=== PATIENT | female | born 1935 | race Caucasian/White ===

== ENCOUNTER 2016-10-20 16:41 | Inpatient (IN) ==
[2016-10-20] MEDS ORDERED: hydrALAZINE 20 MG/1 ML VIAL IM STA (17:34)
--- NOTE | 2016-10-20 17:52 | CT Report ---
CT lumbar spine wo con Indication: fall on buttocks and pain Comparison: None. Technique: Routine CT of the lumbar spine was performed without the administration of intravenous contrast. Axial images as well as coronal and sagittal MPR images of the lumbar spine was submitted for interpretation. The total DLP is 553 mGy*cm. Findings: Lumbar vertebral bodies demonstrate normal alignment. Multilevel degenerative changes are noted with prominent facet arthropathy at L4-5 through L5-S1. Generalized decreased trabeculation is noted. There is approximately 50% height loss at the L1 level, which appears chronic. There is no prior for comparison. There is no evidence of significant central stenosis. Mild disc space loss is noted at L4-5 and L5-S1 with vacuum disc phenomena changes. The prevertebral soft tissues as well as posterior paraspinous musculature and imaged intra-abdominal contents demonstrate no evidence of acute pathology. There is cortical irregularity at the right aspect of the sacrum at the S3-S4 level (best seen on sagittal image 35), which is suspicious for minimally displaced fracture although motion artifact would be a less likely consideration. No other additional displaced acute fractures are identified. Impression: 1. Cortical irregularity at the S3-S4 level may represent motion artifact versus subtle nondisplaced acute fracture. Correlate with focal tenderness at this level. 2. Otherwise, no acute fracture identified within the lumbar spine. Probable remote compression fracture at L1 with 50% height loss. There is no prior for comparison. Generalized decreased trabeculation throughout the visualized osseous structures. 10/20/2016 5:43 PM PROCEDURE INTERPRETED AT [facility] DEPARTMENT OF RADIOLOGY Final Report Signed by: Lance Pradhan
[2016-10-20] MEDS ORDERED: hydrALAZINE 20 MG/1 ML VIAL ONE (17:58)
--- NOTE | 2016-10-20 18:23 | Emergency Department Note ---
I, Val Rodriguez, am scribing for, and in the presence of, Darrian Turcios 17:10. I, Darrian Turcios, personally performed the services described in this documentation, ascribed by Val Rodriguez in my presence, and it is both accurate and complete 823 . Arrival - Arrival Chief Complaint: Fall Stated Complaint: FALL ED Nursing Triage Note: REPORTS TRYING TO GET IN TRUCK TRYING TO STEP OVER A MUD PUDDLE AND SLIPPED AND FELL WITHOUT LOC. PT C/O LOWER BACK PAIN. NO INJURIES NOTED Mode of Arrival: Stretcher Limitations: No Limitations Source: Patient Time Seen by Provider: 10/20/16 16:59 - History of Present Illness HPI Narrative: Pt is a 81 y/o female that was brought to the ED via EMS with c/o left leg and buttocks pain s/p a fall that happened earlier today. Pt reports she was getting into her vehicle when she tried to step over a mud pudding and slipped landing on her buttocks. Pt reports she as unable to get up when she fell. Pt states this is her third fall. She reports her back is not currently hurting but "it's like the last time, it's going to start hurting." Pt states she has an appointment tomorrow here concerning her back. Pt denies any dizziness or LOC. Pt denies hitting her leg during the fall. No other complaints/pain at this time. Onset (ago): hour(s) Consistency: constant Severity: mild Severity scale (1-10): 2 Quality: sharp Date of Last Menstrual Period: MENOPAUSE Allergies/Adverse Reactions: Allergies Allergy/AdvReac Type Severity Reaction Status Date / Time Penicillins Allergy Unknown RASH Verified 10/20/16 16:50 Home Medications: Home Medications Medication Instructions Recorded Confirmed Type Bisoprolol Fumarate 5 mg PO DAILY 10/20/16 10/20/16 History Lisinopril [Prinivil] 20 mg PO DAILY 10/20/16 10/20/16 History Review of System - Review of System 12 point system: reviewed and no additional remarkable complaints except as stated - Review of System Constitutional: Absent: fever Respiratory: Absent: cough Cardiovascular: Absent: chest pain Gastrointestinal: Absent: abdominal pain Musculoskeletal: Present: leg pain (left leg pain s/p fall), other (buttock pain s/p fall). Absent: arm pain, neck pain Neurological: Absent: headache Psychiatric: Absent: anxiety Medical,Surgical,& Family Hx - Medical History Cardio: History of: Hypertension - Social History Smoking Status: Never smoker Frequency of Alcohol Use: None Type of Drug Use: None Exam Vital Signs: Vital Signs Temperature 99.1 F 10/20/16 16:45 Pulse Rate 89 10/20/16 16:45 Respiratory Rate 16 10/20/16 16:45 Blood Pressure 212/118 10/20/16 16:45 O2 Sat by Pulse Oximetry 97 10/20/16 16:41 - General General appearance: alert, in no apparent distress - Head Head exam: Present: atraumatic, normocephalic - Eye Eye exam: Present: PERRL, EOMI - ENT ENT exam: Present: mucous membranes moist. Absent: mucous membranes dry - Neck Neck exam: Present: full ROM. Absent: tenderness - Chest Chest inspection: Present: symmetric chest wall rise. Absent: tenderness - Respiratory Respiratory exam: Present: normal lung sounds bilaterally. Absent: respiratory distress - Cardiovascular Cardiovascular exam: Present: regular rate, normal rhythm, normal heart sounds - Abdominal Exam Abdominal exam: Present: soft. Absent: tenderness - Extremities Exam Extremities exam: Present: full ROM. Absent: tenderness - Back Exam Back exam: Present: full ROM. Absent: tenderness - Neurological Exam Neurological exam: Present: alert, oriented X3, CN II-XII intact. Absent: motor sensory deficit - Psychiatric Psychiatric exam: Present: normal affect, normal mood - Skin Skin exam: Present: warm, dry - Other Other exam information: with sacral tenderness Results - Diagnostic Findings Procedure: CT: report reviewed by me (Lumbar Spine: 1. Cortical irregularity at the S3-S4 level may represent motion artifact versus subtle nondisplaced acute fracture. Correlate with focal tenderness at this level. 2. Otherwise, no acute fracture identified within the lumbar spine.) Disposition Clinical Impression: Hypertension, Contusion Case discussed with: patient Disposition: Still a Patient Condition: Stable Instructions: Fall Prevention for Older Adults (ED), Contusion in Adults (ED) Additional Instructions: due to handicap sp fall and questionable fracture in discussion with radiology. discussion with hospitalist Dr. Matute accepting for hospital observation. Time of Disposition: 18:21
--- NOTE | 2016-10-20 18:45 | Hospitalist History & Physical ---
Assessment and Plan - Time spent with patient Time spent with patient: Greater than 30 minutes (1) Status post fall Status: Acute Assessment and plan: Patient is status post fall has questionable sacral fracture. She will be placed in observation overnight with neuro checks and pain control and was evaluated in the a.m. Current Visit: Yes (2) Hypertension Status: Chronic Assessment and plan: Patient has chronic essential hypertension. Blood pressures currently elevated which is likely secondary to pain which we will attempt to control. We will continue her routine home medications and provide as needed hydralazine intravenously. Current Visit: Yes Qualifiers: Hypertension type: essential hypertension Qualified Code(s): I10 - Essential (primary) hypertension History of Present Illness Chief complaint: Back pain after fall History of present illness: Ms. Joya is a 81 year old female who states that she was opening her car door and fell on her back this afternoon. She has had continued pain and presented to the emergency room where she was evaluated and there is questionable fracture noted. Because she lives alone and has had an advanced age it was felt that she should be placed on observation overnight for pain control and reassess in the a.m. for possible discharge home. She denies any headache, upper respiratory tract symptoms, chest pain, shortness breath, abdominal pain, nausea, vomiting, diarrhea, constipation, melena, hematochezia, hematemesis, dysuria, hematuria, urinary frequency, incontinence, urgency, focal motor weakness or paresthesias, fevers, chills. Her primary care provider is Dr. Radha Chung. Home Medications Medication Instructions Recorded Confirmed Type Bisoprolol Fumarate 5 mg PO DAILY 10/20/16 10/20/16 History Lisinopril [Prinivil] 20 mg PO DAILY 10/20/16 10/20/16 History Allergies Allergy/AdvReac Type Severity Reaction Status Date / Time Penicillins Allergy Unknown RASH Verified 10/20/16 16:50 Medical,Surgical,& Family Hx - Medical History Cardio: History of: Hypertension - Surgical History Surgical History: noncontributory - Family History Family History: noncontributory - Social History Smoking Status: Current every day smoker Have you smoked in the last 12 months: Yes Time spent discussing smoking cessation with patient: 3 to 10 minutes Frequency of Alcohol Use: None Type of Drug Use: None Lives With:: Alone Functional capacity: independent ambulation 12 point system: reviewed and no additional remarkable complaints except as stated Exam - Constitutional Vitals: Period Temp Pulse Resp BP Sys/Colón Pulse Ox Last 24 Hr 99.1 F-99.1 F 89-89 16-16 212-212/118-118 97 General appearance: mild distress - Head Head exam: Present: normocephalic, atraumatic - Eye Eye exam: Present: EOMI Pupils: Present: DEBRA - Neck Neck exam: Absent: lymphadenopathy, meningismus, tenderness, thyromegaly - Respiratory Respiratory exam: Present: clear to auscultation bilaterally. Absent: rales, rhonchi, wheezes - Cardiovascular Cardiovascular exam: Present: regular rate and rhythm. Absent: gallop, JVD, rubs, tachycardia - GI/Abdominal GI/Abdominal exam: Present: normal bowel sounds, soft. Absent: distended, mass , tenderness, rebound - Extremities Exam Extremities exam: Absent: calf tenderness, edema - Back Exam Back exam: Present: vertebral tenderness (Mild tenderness in the lower lumbar and sacral region to direct palpation), other (Kyphosis). Absent: positive straight leg raise - Neurological Exam Neurological exam: Present: alert, oriented X3, CN II-XII intact. Absent: motor sensory deficit - Psychiatric Psychiatric exam: Present: normal affect, normal mood. Absent: agitated, anxious - Skin Skin exam: Present: warm, dry. Absent: erythema, rash Results - Diagnostic Findings Procedure: CT: report reviewed by me
[2016-10-20 19:01] LABS: Basophils % 0.3 % (0.0-0.8); Eosinophils % 0.1 % (0.00-10.9); Hematocrit 40.2 VOL% (35.7-47.0); Hemoglobin 12.7 GM/DL (12.0-16.0); Immature Granulocytes % 0.5 %; Immature Granulocytes Absolute 0.05 #; Lymphocytes # 1.7 10*3/uL (1.4-4.0); Lymphocytes % 15.7 % (21.3-54.2); Mean Corpuscular HGB Conc 31.6 GM/DL (32-36); Mean Corpuscular Hemoglobin 25 PG (27-34); Mean Corpuscular Volume 79.8 FL (87-102); Monocytes # 0.7 10*3/uL (0.11-0.8); Monocytes % 6.6 % (1.7-12.7); Neutrophils # 8.3 10*3/uL (1.4-7.4); Neutrophils % 76.8 % (38.7-73.9); Platelet Count 250 T/CUMM (130-400); Red Blood Count 5.04 MC/CUMM (3.8-5.5); Red Cell Distribution Width 14.9 % (9.3-17.3); White Blood Count 10.8 T/CUMM (4-12)
[2016-10-20 19:17] LABS: Calcium 9.7 MG/DL (8.5-10.1); Osmolality,Calculated 288.1 MOS/KG (273-304); Potassium 3.6 MMOL/L (3.5-5.1)
[2016-10-20 19:40] LABS: Apearance,Urine CLEAR (Clear); Bacteria,Urine Occasional /HPF (Few); Bilirubin,Urine Negative (Negative); Blood, Urine Small mg/dL (Negative); Glucose,Urine (UA) Negative (Negative); Ketones,Urine 80 mg/dL (Negative); Nitrite,Urine Negative (Negative); Protein,Urine 100 MG/DL; RBC,Urine 2 /HPF (0-4); Squamous Epithelial Cell,Urine Occasional /HPF (0-10); Transitional Epi Cells,Urine Occasional /HPF (<1); Urine Color Yellow (Yellow); WBC,Urine 1 /HPF (0-6)
[2016-10-20] MEDS ORDERED: hydrALAZINE 20 MG/1 ML VIAL IV PRN (19:56)
[2016-10-20] MEDS ORDERED: MORPHINE 2 MG/1 ML SYRINGE IV PRN (19:56)
[2016-10-21] MEDS: BISOPROLOL 5 MG TABLET PO SCH (08:53)
[2016-10-21] MEDS: LISINOPRIL 20 MG TABLET PO SCH (08:53)
--- NOTE | 2016-10-21 09:27 | Hospitalist Progress Note ---
Assessment and Plan - Time spent with patient Time spent with patient: Less than 30 minutes (due to assessment, plan and doc) (1) possible sacral fracture Status: Acute Assessment and plan: consult Dr. Jose Davila with ortho for eval Current Visit: Yes (2) Status post fall Status: Acute Current Visit: Yes (3) Hypertension Status: Chronic Assessment and plan: Bp well controlled at this time Current Visit: Yes Qualifiers: Hypertension type: essential hypertension Qualified Code(s): I10 - Essential (primary) hypertension Hospitalist: Subjective Interval history: Ms. Joya was seen today lying in bed. She was admitted yesterday s/p fall with a questionable nondisplaced lumbar spine fracture. She states that her pain is somewhat better, but mentions that it hurts when she moves. Her vitals are stable. I have discussed with Dr. Harlan Tellez and we will consult Ortho to ensure no further treatment needed for her possible fx. Exam - Constitutional Vitals: Period Temp Pulse Resp BP Sys/Colón Pulse Ox Last 24 Hr 97.3 F-98.2 F 86-93 16-89 139-162/60-84 16-95 General appearance: no acute distress, cachectic - Head Head exam: Present: normal inspection, normocephalic - Eye Eye exam: Present: EOMI. Absent: scleral icterus Pupils: Present: DEBRA, normal accommodation - ENT ENT exam: Present: normal exam, normal oropharynx - Neck Neck exam: Present: normal inspection. Absent: lymphadenopathy - Respiratory Respiratory exam: Present: clear to auscultation bilaterally. Absent: accessory muscle use - Cardiovascular Cardiovascular exam: Present: regular rate and rhythm - GI/Abdominal GI/Abdominal exam: Present: normal bowel sounds, soft. Absent: tenderness - Extremities Exam Extremities exam: Present: normal inspection. Absent: edema - Back Exam Back exam: Present: normal inspection. Absent: muscle spasm - Neurological Exam Neurological exam: Present: alert, oriented X3 - Psychiatric Psychiatric exam: Present: normal affect, normal mood - Skin Skin exam: Present: normal color, warm, dry, intact Results - Labs CBC & BMP: 10/20/16 18:53 10/20/16 18:53 Lab Results: I have reviewed the past 24 hour labs Quality Measures - Stroke Symptom Onset Unknown: No Specialty Discharge - Follow Up or Referrals
[2016-10-21] MEDS ORDERED: SKIN HEALING OINT (AQUAPHOR) 50 GM TUBE TOP PRN (10:28)
--- NOTE | 2016-10-21 18:11 | Orthopedic Consult Note ---
History of Present Illness Chief complaint: compression fracture lumbar/ possible sacral fracture History of present illness: Ms. Joya is a 81 year old female See dictated reports Home Medications Medication Instructions Recorded Confirmed Type Bisoprolol Fumarate 5 mg PO DAILY 10/20/16 10/20/16 History Lisinopril [Prinivil] 20 mg PO DAILY 10/20/16 10/20/16 History Allergies Allergy/AdvReac Type Severity Reaction Status Date / Time Penicillins Allergy Unknown RASH Verified 10/20/16 16:50 Medical,Surgical,& Family Hx - Medical History Cardio: History of: Hypertension Psychological: History of: Anxiety Disorders Neurology: History of: Dementia (appears pleasantly confused) HEENT: History of: Dental Problems (dentures) Musculoskeletal: History of: Osteoporosis - Social History Smoking Status: Current every day smoker Frequency of Alcohol Use: None Type of Drug Use: None Exam - Constitutional Vitals: Period Temp Pulse Resp BP Sys/Colón Pulse Ox Last 24 Hr 97.3 F-98.2 F 83-93 16-89 135-162/60-84 16-95 Results - Labs CBC & BMP: 10/20/16 18:53 10/20/16 18:53 Specialty Discharge - Follow Up or Referrals
--- NOTE | 2016-10-21 20:32 | XRay Report ---
XR lumbar spine AP/LAT Clinical Information: L1 compression fracture Comparison: CT lumbar spine 10/20/2016 prior PA and lateral chest radiographs 07/08/2011 Findings: Osteopenia with multiple compression deformities in the lower thoracic and upper lumbar spine. There is no recent prior for comparison. At least 50% height loss is noted at T9, T12 and L1. There is approximately 30% height loss noted at T10-T11. The T9 compression fracture is chronic. The other T12 and L1 compression fractures are age indeterminate. Correlation with MRI imaging of the thoracic and/or lumbar spine may be helpful if there is continued clinical concern for acute compression fracture. Impression: As above. PROCEDURE INTERPRETED AT [facility] DEPARTMENT OF RADIOLOGY Final Report Signed by: Lance Pradhan
--- NOTE | 2016-10-22 00:56 | Consultation ---
HISTORY: An 81-year-old white female admitted for multiple complaints following a fall. She was ad mitted to the Hospitalist Service. She also sees Dr. Tellez. She has a history of low back problems . She states she has been seeing Dr. Chung. It is difficult from her history to get the diagno sis of a fracture. She has not been in any type of brace or orthotics. Upon presentation, she was diagnosed as having a L1 compression fracture as well as a possible fracture to the right sacrum bas ed on the CT scan. She is complaining primarily of mid to low lumbar back pain and no radiation of pain into either lower extremity. PHYSICAL EXAMINATION Thin white female. She tolerates gentle range of motion about both lower extremities without any ob vious discomfort. Motor exam is intact distally. She has no pain about the pelvis, only pain in th e upper to mid lumbar region. RADIOGRAPHS: A CT scan is available, it does not have any sagittal views, it is only axial and juliana nal. I do not see an obvious sacral fracture or significant degenerative changes involving her lumb ar spine. IMPRESSION: SUSPECTED L1 COMPRESSION FRACTURE. PLAN: I have discussed with her the diagnosis. I will order some plain film x-rays of her lumbar s pine, so we can get a better idea of what the degree of compression and also some idea about the acu teness of the injury. We will obtain those tonight with further recommendations. Hopefully, we can start mobilizing her soon. Thank you for the consultation. We will follow her along with you.
--- NOTE | 2016-10-22 09:25 | Orthopedic Progress Note ---
Orthopedics - Subjective Interval history: X-rays reviewed multilevel compression fractures most likely chronic. To be followed by Dr. Gomes in [place] for this condition offered a lumbar support may help with mobilization get PT to start mobilizing. Exam - Constitutional Vitals: Period Temp Pulse Resp BP Sys/Colón Pulse Ox Last 24 Hr 97.5 F-98.1 F 79-88 16-20 135-162/52-80 91-95 Results - Labs CBC & BMP: 10/20/16 18:53 10/20/16 18:53 Quality Measures - Stroke Symptom Onset Unknown: No Specialty Discharge - Follow Up or Referrals
[2016-10-22] MEDS: LISINOPRIL 20 MG TABLET PO SCH (09:33)
[2016-10-22] MEDS: BISOPROLOL 5 MG TABLET PO SCH (09:33)
--- NOTE | 2016-10-22 10:38 | Discharge Summary ---
<Sofía Orellana - Last Filed: 10/22/16 10:35> Hospital Course - Hospital Course Hospital Course: Ms. Joya was admitted on 10/20 after she fell at home. There was a questionable sacral fracture. She does have a hx of HTN and this has been well controlled while she has been hospitalized. She was evaluated by Dr. Jose Davila for Ortho and it was felt her fractures were more likely chronic in nature. She has reached maximum benefit from her hospitalization and will be discharged home today with home health and physical therapy. We are awaiting delivery of a back brace for her as well. - Time spent with patient Time with patient DS: Greater than 30 minutes (due to plan, doc and med rec.) Diagnosis - Discharge Diagnosis (1) possible sacral fracture Status: Acute (2) Status post fall Status: Acute (3) Hypertension Status: Chronic Specialty Discharge - Follow Up or Referrals Discharge Plan - Discharge Data Disposition: Disch To Home/Self Care - Discharge Medications New HYDROcodone/ACETAMIN 5-325 [[place] 5-325] 1 tablet PO Q4H PRN #30 tablet PRN Reason: Pain Mild (1-3) Continue Lisinopril [Prinivil] 20 mg PO DAILY Bisoprolol Fumarate 5 mg PO DAILY - Follow Up or Referral - Forms/Instructions Instructions: Fall Prevention for Older Adults (ED), Contusion in Adults (ED) Exam - Constitutional Vitals: Period Temp Pulse Resp BP Sys/Colón Pulse Ox Last 24 Hr 97.0 F-98.1 F 79-89 16-20 135-166/52-97 91-95 DS: Provider Date of admission: 10/20/16 18:23 Primary care physician: . No PCP Attending physician on admission: Harlan Tellez Jr., MD Consults: 10/20/16 19:58 Consult to Pharmacy [CONS] Routine Reason for Pharmacy Consult: Adjust Meds Renal Funct 10/21/16 09:24 Consult to Physician [CONS] Routine Comment: possible lumbar spine fx Consulting Provider: Bird Garcia Jr. Person Notified: [email or web address] Date Notified: 10/21/16 Time Notified: 09:43 Consult Notification Comment: Was told that "None of our doctors treat the back." Called Sofía at 0948, made her aware. Voiced understanding. 10/21/16 15:00 Consult to Case Mgmt/Social Srvs [CONS] Routine Reason for Case Mgmt/Social Srvs: Discharge Planning Consult Comment: family states pt cannot return home r/t hoarding conditions in home- 10/21/16 15:54 PT [Consult to Physical Therapy] [CONS] Routine Reason for Physical Therapy: Evaluate and Treat 10/22/16 10:30 Consult to Case Mgmt/Social Srvs [CONS] Routine Reason for Case Mgmt/Social Srvs: Home Health Discharging clinician: Sofía Orellana NP Expected date of discharge: 10/22/16 <Harlan Tellez Jr. - Last Filed: 10/22/16 15:14> Hospital Course - Hospital Course Hospital Course: I have seen the patient just before discharge she is stable. Has done physical therapy with the back brace and is doing acceptable. Patient will follow with Dr. Gomes at discharge. Diagnosis - Discharge Diagnosis (1) Hypertension Status: Chronic (2) Contusion Status: Acute (3) Status post fall Status: Resolved (4) possible sacral fracture Status: Chronic Discharge Plan - Discharge Data Condition at Discharge: Stable Discharge Diet: advance to your usual diet Activity: as per physical therapy Hygiene: no restrictions Contact your physician if you experience:: fever over 101 - Forms/Instructions Additional Discharge Instructions: Follow-up with Dr. Gomes in 1 week Exam - Constitutional General appearance: under weight - Head Head exam: Present: normal inspection - ENT ENT exam: Present: normal exam - Respiratory Respiratory exam: Present: clear to auscultation bilaterally - Cardiovascular Cardiovascular exam: Present: regular rate and rhythm - GI/Abdominal GI/Abdominal exam: Present: normal bowel sounds - Neurological Exam Neurological exam: Present: alert, oriented X3, CN II-XII intact - Skin Skin exam: Present: normal color
[2016-10-22 12:21] VITALS: BP 158/75
== END 2016-10-22 15:47 | disposition home health service (06) | DRG 552 ==
LOC: EDUNIT# → N.EDINP 16:41 → N.ED 16:41 → OBSVTOIN 18:23 → N.EDINP 19:33 → N.5E 19:55
PROVIDERS: ADMIT Internal Medicine Nephrology; ATTEND Internal Medicine Nephrology